=== PATIENT | female | born 1975 | race African-American/Black ===

== ENCOUNTER 2016-12-25 16:19 | Emergency (ER) | payer OTHER ==
[~2016-12-25] VITALS: Ht 172.7 cm; Wt 67.0 kg
[2016-12-25] MEDS ORDERED: KETOROLAC 60MG/2ML VIAL IM ONE (21:00)
[2016-12-25 21:10] VITALS: BP 117/76
== END 2016-12-25 21:20 | disposition home or self-care (01) ==
LOC: ER 19:55
DX: J02.0 Streptococcal pharyngitis (principal); Z88.3 Allergy status to other anti-infective agents; Z88.2 Allergy status to sulfonamides; Z98.890 Other specified postprocedural states
CPT/HCPCS: 96372; 99283; J1885; Z7610

== ENCOUNTER 2021-08-11 23:52 | Emergency (ER) | payer OTHER ==
[~2021-08-11] VITALS: Ht 172.7 cm; Wt 69.0 kg
[2021-08-12] MEDS ORDERED: MAGNESIUM/ALUMINUM HYDROXIDE/SIMETHICONE 30ML UDC PO STA (00:13)
[2021-08-12] MEDS ORDERED: DICYCLOMINE 10 MG/5 ML ORAL SYR PO STA (00:13)
[2021-08-12] MEDS ORDERED: ONDANSETRON 4MG ODT PO STA (00:13)
[2021-08-12 01:58] LABS: CHLORIDE 106 mEq/L (98-107)
[2021-08-12 02:25] LABS: HCG SCREEN NEGATIVE
[2021-08-12 02:31] LABS: HEMATOCRIT. 38.1 % (36.0-48.0); HEMOGLOBIN. 12.3 g/dL (12.0-16.0); MEAN CORPUSCULAR HEMOGLOBIN 26.9 pg (28.0-32.0); MEAN CORPUSCULAR VOLUME 83.4 fL (81.0-99.0); MEAN PLATELET VOLUME 8.6 fl (7.4-10.4); PLATELET 309 x1000/uL (130-400); RED BLOOD CELL COUNT 4.57 mill/uL (4.2-5.4); RED CELL DISTRIBUTION WIDTH 13.4 % (11.6-14.6)
[2021-08-12 02:53] LABS: CLARITY URINE CLOUDY (CLEAR); COLOR URINE YELLOW (YELLOW); KETONES URINE TRACE (NEGATIVE); LEUKOCYTE ESTERASE URINE TRACE (NEGATIVE); NITRITE URINE NEGATIVE (NEGATIVE); OCCULT BLOOD URINE NEGATIVE (NEGATIVE); PH URINE 5.5 (4.5-8.0); PROTEIN URINE NEGATIVE (NEGATIVE)
[2021-08-12] MEDS ORDERED: KETOROLAC 60MG/2ML VIAL IM SCH (03:00)
[2021-08-12] MEDS ORDERED: CEPH500C2 MT (03:04)
[2021-08-12] MEDS ORDERED: CEPHALEXIN 250MG CAPSULE PO SCH (03:15)
[2021-08-12 03:45] VITALS: BP 126/78
[2021-08-12 06:40] LABS: PLATELET ESTIMATE NORMAL
== END 2021-08-12 04:00 | disposition home or self-care (01) ==
LOC: ER 23:52
DX: N39.0 Urinary tract infection, site not specified (principal); E11.9 Type 2 diabetes mellitus without complications; Z88.2 Allergy status to sulfonamides
CPT/HCPCS: 36415; 80053; 81003; 83690; 84703; 85025; 93005; 96372; 99284; J1885; Q0162

== ENCOUNTER 2021-09-04 06:25 | Emergency (ER) | payer OTHER ==
[~2021-09-04] VITALS: Ht 172.7 cm; Wt 68.0 kg
[~2021-09-04 06:25] MED LIST: CEPH500C2 MT
[2021-09-04] MEDS ORDERED: SODIUM CHLORIDE 0.9% 1,000 ML IV ONE (07:15)
[2021-09-04 07:54] LABS: BASOPHILS % 0.6 % (0.0-2.0); EOSINOPHILS % 0.2 % (0.0-5.0); HEMATOCRIT. 37.3 % (36.0-48.0); HEMOGLOBIN. 12.1 g/dL (12.0-16.0); LYMPHOCYTES % 20.5 % (20.0-50.0); MEAN CORPUSCULAR HEMOGLOBIN 26.9 pg (28.0-32.0); MEAN CORPUSCULAR VOLUME 82.7 fL (81.0-99.0); MONOCYTES % 6.8 % (2.0-8.0); NEUTROPHILS % 71.9 % (40.0-76.0); PLATELET 351 x1000/uL (130-400); RED BLOOD CELL COUNT 4.51 mill/uL (4.2-5.4); RED CELL DISTRIBUTION WIDTH 13.3 % (11.6-14.6)
[2021-09-04 07:58] LABS: CHLORIDE 107 mEq/L (98-107)
[2021-09-04 08:17] LABS: HCG SCREEN NEGATIVE
[2021-09-04 08:17] LABS: CLARITY URINE CLOUDY (CLEAR); COLOR URINE YELLOW (YELLOW); KETONES URINE NEGATIVE (NEGATIVE); LEUKOCYTE ESTERASE URINE NEGATIVE (NEGATIVE); NITRITE URINE NEGATIVE (NEGATIVE); OCCULT BLOOD URINE NEGATIVE (NEGATIVE); PH URINE 7.5 (4.5-8.0); PROTEIN URINE TRACE (NEGATIVE); SPECIFIC GRAVITY URINE 1.028 (1.005-1.030)
[2021-09-04] MEDS ORDERED: KETOROLAC 15MG/ML VIAL IV ONE (09:00)
[2021-09-04] MEDS ORDERED: CIPR-263 MT (10:10)
[2021-09-04 10:16] VITALS: BP 115/66
== END 2021-09-04 10:17 | disposition home or self-care (01) ==
LOC: ER 06:25
DX: R10.30 Lower abdominal pain, unspecified (principal); Z87.440 Personal history of urinary (tract) infections; E11.65 Type 2 diabetes mellitus with hyperglycemia
CPT/HCPCS: 36415; 80053; 81003; 81025; 84703; 85025; 87086; 96361; 96374; 99283; J1885; J7030